=== PATIENT | male | born 1935 | race Two or more races ===

== ENCOUNTER 2018-11-10 11:46 | Outpatient (CLI) | payer OTHER | END 2018-11-10 11:56 | disposition home or self-care (01) | LOC: RAD 501 11:46 | DX: M19.90 Unspecified osteoarthritis, unspecified site (principal) ==

== ENCOUNTER 2019-04-29 14:24 | Outpatient (CLI) | payer OTHER | END 2019-04-29 14:27 | disposition home or self-care (01) | LOC: RAD 14:24 | DX: H25.012 Cortical age-related cataract, left eye (principal); Z98.42 Cataract extraction status, left eye ==

== ENCOUNTER 2019-10-03 08:07 | Outpatient (CLI) | payer OTHER | END 2019-10-03 15:03 | disposition home or self-care (01) | LOC: SONOGRAMA 08:07 | DX: R10.84 Generalized abdominal pain (principal) ==

== ENCOUNTER 2019-10-14 08:21 | Outpatient (CLI) | payer OTHER | END 2019-10-14 09:22 | disposition home or self-care (01) | LOC: NUCLEAR 08:21 | DX: K81.1 Chronic cholecystitis (principal) | CPT/HCPCS: 78227; A9537 ==

== ENCOUNTER 2021-12-31 15:59 | Outpatient (CLI) | payer OTHER | END 2021-12-31 16:05 | disposition home or self-care (01) | LOC: RAD 15:59 | PROVIDERS: ATTEND Pulmonary Function Technologist | DX: J43.9 Emphysema, unspecified (principal); J45.909 Unspecified asthma, uncomplicated ==

== ENCOUNTER 2022-03-07 11:30 | Outpatient (CLI) | payer OTHER | END 2022-03-07 11:42 | disposition home or self-care (01) | LOC: RAD 11:30 | PROVIDERS: ATTEND Internal Medicine | DX: J09.X9 Influenza due to identified novel influenza A virus with other manifestations (principal) ==

== ENCOUNTER → 2022-03-13 | Outpatient (CLI) | payer OTHER | END | disposition home or self-care (01) | LOC: NUCLEAR 07:59 | PROVIDERS: ATTEND Internal Medicine | DX: I11.9 Hypertensive heart disease without heart failure (principal) ==

== ENCOUNTER 2022-07-23 13:10 | Outpatient (CLI) | payer OTHER | END 2022-07-23 13:17 | disposition home or self-care (01) | LOC: RAD 13:10 | PROVIDERS: ATTEND Internal Medicine | DX: J01.11 Acute recurrent frontal sinusitis (principal) ==

== ENCOUNTER 2023-09-10 13:24 | Outpatient (CLI) | payer OTHER | END 2023-09-10 13:36 | disposition home or self-care (01) | LOC: TOM 13:24 | PROVIDERS: ATTEND Internal Medicine Pulmonary Disease | DX: R06.02 Shortness of breath (principal); R05.9 Cough, unspecified; J45.30 Mild persistent asthma, uncomplicated; Z87.891 Personal history of nicotine dependence; R05.3 Chronic cough ==

== ENCOUNTER 2024-06-06 09:09 | Outpatient (CLI) | payer OTHER | END 2024-06-06 09:23 | disposition home or self-care (01) | LOC: SONOGRAMA 09:09 | PROVIDERS: ATTEND Internal Medicine | DX: E03.8 Other specified hypothyroidism (principal) ==

== ENCOUNTER 2024-11-05 09:32 | Outpatient (CLI) | payer OTHER | END 2024-11-05 09:34 | disposition home or self-care (01) | LOC: RAD 09:32 | PROVIDERS: ATTEND Internal Medicine | DX: J44.1 Chronic obstructive pulmonary disease with (acute) exacerbation (principal) ==

== ENCOUNTER 2025-02-03 09:01 | Outpatient (CLI) | payer OTHER | END 2025-02-03 09:05 | disposition home or self-care (01) | LOC: TOM 09:01 | PROVIDERS: ATTEND Internal Medicine | DX: R19.5 Other fecal abnormalities (principal) ==